=== PATIENT | male | born 1975 | race Caucasian/White ===

== ENCOUNTER 2019-01-31 12:56 | Emergency (ER) | payer OTHER ==
[~2019-01-31] VITALS: Ht 180.3 cm; Wt 79.4 kg
[2019-01-31 14:00] VITALS: BP 119/79
[2019-01-31] MEDS ORDERED: LIDOCAINE WITH 8.4% SOD BICARB 3 ML DISP.SYRIN. INJ ONE (14:15)
--- NOTE | 2019-01-31 14:46 | PHYS DOC ---
Adult General Chief Complaint Chief Complaint: LACERATION/AVULSION HPI HPI Patient is a 43 year old male patient who presents with right eyebrow laceration. Patient states he works in [place] and a telescoping microscope accidentally hit him in the face. Patient denies any loss of consciousness Review of Systems Review of Systems Constitutional: Denies fever or chills [] Eyes: Denies change in visual acuity, redness, or eye pain [] Musculoskeletal: Denies back pain or joint pain [] Integument: Reports eyebrow laceration on the right Neurologic: Denies headache, focal weakness or sensory changes [] All other systems were reviewed and found to be within normal limits, except as documented in this note. Current Medications Current Medications Current Medications Medications (Trade) Dose Ordered Sig/Rico Start Time Stop Time Status Last Admin Dose Admin Lidocaine HCl (Buffered Lidocaine 1%) 3 ml 1X ONCE 01/31/19 14:15 01/31/19 14:40 DC Allergies Allergies Allergies Coded Allergies Type Severity Reaction Last Updated Verified No Known Drug Allergies 01/31/19 No Physical Exam Physical Exam Constitutional: Well developed, well nourished, no acute distress, non-toxic appearance. [] HENT: Normocephalic, atraumatic, bilateral external ears normal, oropharynx moist, no oral exudates, nose normal. [] Skin: Warm, dry, right eyebrow with a laceration approximately 2 cm long. Back: No tenderness, no CVA tenderness. [] Extremities: No tenderness, no cyanosis, no clubbing, ROM intact, no edema. [] Neurologic: Alert and oriented X 3, normal motor function, normal sensory function, no focal deficits noted. [] Psychologic: Affect normal, judgement normal, mood normal. [] EKG EKG [] Radiology/Procedures Radiology/Procedures Laceration/Wound Repair Wound Location: Right eyebrow Wound's Depth, Shape: Horizontal Wound Length (cm): Approximately 2 cm Wound Explored: clean Irrigated w/ Saline (ccs): 20 Betadine Prep?: y Anesthesia: 1% buffered lidocaine Volume Anesthetic (ccs): Approximately 1 mL Wound Repaired With: Dissolvable gut Suture Size/Type: 5.0/interrupted sutures Number of Sutures: 4 Progress : Wound was left open to air Course & Med Decision Making Course & Med Decision Making Pertinent Labs and Imaging studies reviewed. (See chart for details) This is a 43-year-old male patient presenting with a right eyebrow laceration that was closed with dissolvable sutures. Tetanus up-to-date. Wound care instructions and return precautions provided. Dragon Disclaimer Dragon Disclaimer This electronic medical record was generated, in whole or in part, using a voice recognition dictation system. Departure Departure Impression: Primary Impression: Laceration of right eyebrow Disposition: HOME, SELF-CARE Condition: STABLE Referrals: CHRISTIANO VINCENT MD (PCP) Follow-up with your doctor as needed Patient Instructions: Facial Laceration, [id number] Additional Instructions: Keep the laceration site clean and dry. You can shower and wash your face. Apply Neosporin to the laceration site twice a day for 1 week. Monitor the laceration site for any signs of infection including but not limited to increased redness, warmth, yellow drainage from the area and return to the ED if they occur or see your doctor Problem Qualifiers Primary Impression: Laceration of right eyebrow Encounter type: initial encounter Qualified Codes: S01.111A - Laceration without foreign body of right eyelid and periocular area, initial encounter INDIO ANDERSON [employer] Jan 31, 2019 14:46
== END 2019-01-31 14:51 | disposition home or self-care (01) ==
LOC: ER 12:56
DX: S01.111A Laceration without foreign body of right eyelid and periocular area, initial encounter (principal); W22.8XXA Striking against or struck by other objects, initial encounter; Y93.89 Activity, other specified; Y92.89 Other specified places as the place of occurrence of the external cause; Y99.8 Other external cause status
CPT/HCPCS: 12011; 99283